=== PATIENT | male | born 1960 | race Caucasian/White ===

== ENCOUNTER 2022-04-11 06:14 | Day surgery (SDC) | payer BC ==
[~2022-04-11] VITALS: Ht 185.4 cm; Wt 97.7 kg
--- NOTE | ~2022-04-11 | OR ---
[facility] [address], [place] [address] Draft DATE OF OPERATION: 04/11/2022 SURGEON: John Scott MD PREOPERATIVE DIAGNOSES: 1. History of polyps in 2014. 2. Family history of colon cancer in grandfather and history of polyps in father. POSTOPERATIVE DIAGNOSIS: Sessile polyp, right distal colon. PROCEDURE: Total colonoscopy to cecum with cold snare polypectomy x1. ANESTHESIA: Intravenous sedation, fentanyl 100 mcg and Versed 5 mg. INDICATIONS: This 61-year-old white man is a patient of Dr. Head and underwent colonoscopy by me in 2013, at which time he was found to have a large pedunculated polyp in the sigmoid and a smaller polyp in the cecum. He remains asymptomatic. He is here for screening colonoscopy. He understands the risks of bleeding, infection, and perforation. Notably, he has family history of colon cancer in his grandfather and polyp in his father. FINDINGS: The prep was excellent. Complete colonoscopy was undertaken to the cecum without question. He had one sessile polyp of the distal ascending colon, which was excised with cold snare polypectomy technique and additional morcellation as well. The remaining colon was normal. DESCRIPTION OF PROCEDURE: The patient was brought to the endoscopy suite and placed in lateral decubitus position given intravenous sedation to the point of slurred speech and nystagmus with full cardiopulmonary monitoring. Digital rectal examination was normal including a normal prostate. An Olympus video colonoscope was passed into the rectum and manipulated throughout the colon, ultimately intubating the cecum itself. The ileocecal valve and appendiceal orifice were normal. There was no sign of recurrent polyp of the cecum. The scope was withdrawn in a distal ascending colon, a sessile polyp was noted. This was quite obviously adenomatous. This was excised with cold snare technique and passed PATIENT NAME: KEMI JEAN OPERATIVE REPORT DATE OF : 58 REPORT #: [id number] PHYSICIAN: JOHN SCOTT MD PCP: FAUSTINO HEAD MD REPORT IS CONFIDENTIAL AND NOT TO BE RELEASED WITHOUT AUTHORIZATION [facility] [address], [place] [address] Draft for pathology. The remnants of the polyp base were excised with cold morcellation to assure complete resection. The scope was then withdrawn further and examination throughout showed no other abnormalities. Retroflexed view of the rectum was normal. Scope was removed, the patient was taken to the recovery room in good condition. CONCLUDING DIAGNOSIS: Polyps x1. PLAN: Recommend repeat colonoscopy in 5 years or sooner if clinically indicated. He will return to the ongoing care of Dr. Head. MD BONNIE Chan/MODL /[id number] cc: Dr. Head Copies: ~ PATIENT NAME: KEMI JEAN OPERATIVE REPORT DATE OF : 58 REPORT #: [id number] PHYSICIAN: JOHN SCOTT MD PCP: FAUSTINO HEAD MD REPORT IS CONFIDENTIAL AND NOT TO BE RELEASED WITHOUT AUTHORIZATION
[~2022-04-11 06:14] MED LIST: DAILY VALUE1 EACH PO; PERCOCET 7.5-31 EACH PO
--- NOTE | 2022-04-11 08:49 | NUR ---
04/11/22 0849 Elda Gutierrez 0807 PT ARRIVED IN PACU SLEEPY WITH NO C/O'S. ABD SOFT. 0815 DR AT BEDSIDE. ALL QUESTIONS ANSWERED. 0825 SITTING AT SIDE OF BED. DC INSTRUCTIONS GIVEN. 0840 LEFT VIA W/C. INSTRUCTIONS GIVEN TO AT CAR.
== END 2022-04-11 08:40 | disposition home or self-care (01) ==
LOC: DS 06:14 → OPS 06:14 → DS 13:00
PROVIDERS: ATTEND Surgery
PROC: 0DBN8ZZ Excision of Sigmoid Colon, Via Natural or Artificial Opening Endoscopic (ICD-10-PCS; principal; 2022-04-11 13:00)
DX: Z12.11 Encounter for screening for malignant neoplasm of colon (principal); D12.6 Benign neoplasm of colon, unspecified; Z86.010 Personal history of colon polyps; Z98.890 Other specified postprocedural states; Z88.0 Allergy status to penicillin
CPT/HCPCS: 99153; G0500; J2250; J3010

== ENCOUNTER 2023-03-16 05:43 | Day surgery (SDC) | payer BC ==
[~2023-03-16] VITALS: Ht 188 cm; Wt 97.7 kg
--- NOTE | ~2023-03-16 | OR ---
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 PROCEDURES: 1. Right frontal sinusotomy, revision of nasofrontal region, 10753. 2. Left maxillary antrostomy with removal of tissue, [id number] on the left side. INDICATIONS: This 62-year-old gentleman about eight weeks ago had sinus surgery with complete sinusotomies of all sinuses. The patient has been having some issues with scarring and this was dealt in the office with multiple postop visits using collagen wafers, etc to try and break the scars and keep things open. However, the patient has progressed to the point where his right frontal sinus is acutely infected with closure of that sinus as well as complete opacification of the left maxillary sinus on CT scan. The patient has been treated with multiple antibiotics and currently is in a subacute state. The CT scan demonstrated poor drainage and essentially no drainage of the left maxillary sinus. Because of the problems with scarring and the clinical course, it is felt best to open or redo the surgical procedure in the left maxillary sinus and the right frontal sinus to open things up wider. PROCEDURE IN DETAIL: The patient was placed in the supine position, had an orotracheal intubation, was placed under general anesthesia. The left side was approached first. It was photographed preop, intraop and postoperatively. The lateralization of the middle turbinates in association with the maxillary ostium more of the turbinate was removed with a Thru-Cut Ethmoid punch. Then, the ostium once that stenosed and scarred ostium could be found. Backbiter forceps was insinuated and then between that and the Thru-Cut ethmoid punch, the maxillary sinus was widely opened at this time to approximate diameter of 1.5 cm. The mucopurulence was suctioned out of that, then irrigated with 10 mL syringe and then re-aspirating all the contents out. The rest of the sinus labyrinth was normal including good wide patent drainage from the frontal sinus. This was PATIENT NAME: KEMI JEAN OPERATIVE REPORT DATE OF : 58 REPORT #: [id number] PHYSICIAN: ISRRAEL POLLARD MD PCP: FAUSTINO SANDS MD REPORT IS CONFIDENTIAL AND NOT TO BE RELEASED WITHOUT AUTHORIZATION [facility] [address], [place] [address] Draft photographed. On the right side, 1st endoscopic picture showed purulence oozing out of the stenosed region. Scarring had brought all areas together basically closing off the frontal sinus drainage. Following the purulence, ostium was placed into that with some various frontal sinus instruments, the Thru-Cut ethmoid punch, the Kerrison frontal sinus forcep. The sagittal and coronal biting forceps and essentially a Shun cell, which had very was removed laterally and posteriorly to open up the frontal sinus widely. All the purulence which was extremely thick or the mucopus was aspirated out of the frontal sinus entirely. The postop resulting ostium into the frontal sinus was nearly 1 cm. A little bit of NasoPore was placed on the left side to help prevent any adhesion bands between the remnant of the middle turbinates and the lateral wall and then the patient was awakened, sent to recovery in good condition. Estimated blood loss was between 30 and 40 mL. There were no complications. Isrrael Pollard MD [facility] /[id number] Copies: ~ PATIENT NAME: KEMI JEAN OPERATIVE REPORT DATE OF : 58 REPORT #: [id number] PHYSICIAN: ISRRAEL POLLARD MD PCP: FAUSTINO SANDS MD REPORT IS CONFIDENTIAL AND NOT TO BE RELEASED WITHOUT AUTHORIZATION
[2023-03-16 05:58] VITALS: BP 117/81
--- NOTE | 2023-03-16 09:24 | NUR ---
03/16/23 0924 Denae Nguyễn 0854- PT ARRIVES TO PACU, SEMI ONEAL POSITION. NON REACTIVE TO STIMULUS AT THIS TIME, OPA IN PLACE, MAINTAINING OWN AIRWAY WITH OPA. O2 AT 10 L PER MASK ON ARRIVAL. ALL MONITORS APPLIED. GAUZE AND TAPE TO NARES, NO DRAINAGE. LR INFUSING TO RFA IV. 0858- PT O2 SATS 100% ON 10L, O2 DOWN TO 6L AT THIS TIME. 0910- PT REMAINS NON REACTIVE AT THIS TIME. CONTINUE TO MONITOR.
[2023-03-16 09:51] VITALS: BP 109/66
--- NOTE | 2023-03-16 09:53 | NUR ---
MEHDI 0950: PT IS BACK TO DS FROM PACU. HE IS EASILY AROUSABLE. HE DOES NEED TO BE REMINDED TO BREATH THROUGH HIS MOUTH OR HIS O2 SATS WILL DROP. HE IS DENYING PAIN OR NAUSEA. WATER ON BEDSIDE TABLE. CALL LIGHT WITHIN REACH. NO ADDITIONAL NEEDS. DC CRITERIA REVIEWED WITH PT.
--- NOTE | 2023-03-16 10:48 | NUR ---
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 HE AMBULATES WITH STANDBY ASSIST. LE 1030: PT VOIDS 300MLS OF PALE YELLOW URINE. HE AMBULATES BACK TO HIS ROOM. HIS WATER IS REFILLED AND HE IS GIVEN VANILLA PUDDING.
--- NOTE | 2023-03-16 10:49 | NUR ---
LE 1048: LEVOFLOAXCIN 500MG IS CALLED INTO [facility]
[2023-03-16 10:58] VITALS: BP 101/63
--- NOTE | 2023-03-16 11:00 | NUR ---
LE 1055: PT IS GIVEN WRITTEN AND VERBAL DC INSTRUCTIONS. HE VERBALIZES UNDERSTANDING. HE DENIES HAVING ANY QUESTIONS AT THIS TIME. LE 1058: PT IS UP TO USE THE RESTROOM AGAIN. HE HAS TOLERATED WATER AND PUDDING.
--- NOTE | 2023-03-16 11:17 | NUR ---
LE 1110: PT IS TAKEN TO PERSONAL VEHICLE VIA WC. HE IS ABLE TO TRANSFER HIMSELF WITHOUT ISSUES.
[2023-03-16 13:39] VITALS: BP 109/76
== END 2023-03-16 11:10 | disposition home or self-care (01) ==
LOC: DS 05:43
PROVIDERS: ATTEND Otolaryngology
PROC: 099R8ZZ Drainage of Left Maxillary Sinus, Via Natural or Artificial Opening Endoscopic (ICD-10-PCS; principal; 2023-03-16 07:30)
DX: J32.0 Chronic maxillary sinusitis (principal); J32.1 Chronic frontal sinusitis
CPT/HCPCS: J0330; J0461; J0690; J1100; J1885; J2250; J2405; J2704; J2765; J3010; J3490; J7121